=== PATIENT | female | born 1950 | race African-American/Black ===

== ENCOUNTER → 2022-09-22 | Outpatient (CLI) | payer MEDICARE, BC ==
[~2022-09-22] MED LIST: ACYC200C31 PO; BARIUM SULFATE(VOLUMEN) 450 ML ORAL.SUSP ONE; FLUO118.2 TP; IOHEXOL-300 100 ML BOTTLE ONE; KETO120S7 TP; PRAV40TA58 PO
== END | disposition home or self-care (01) ==
LOC: CT 07:18 → 7EST 07:57 → UNDOADMIN 07:57 → 7EST 08:14
PROVIDERS: ATTEND Internal Medicine Hematology & Oncology
DX: C49.A2 Gastrointestinal stromal tumor of stomach (principal); K57.30 Diverticulosis of large intestine without perforation or abscess without bleeding; I25.10 Atherosclerotic heart disease of native coronary artery without angina pectoris; I31.39 Other pericardial effusion (noninflammatory); K76.89 Other specified diseases of liver; E27.8 Other specified disorders of adrenal gland
CPT/HCPCS: 71260; 74177; Q9967

== ENCOUNTER → 2023-10-10 | Outpatient (CLI) | payer MEDICARE, BC ==
[~2023-10-10] MED LIST changes: +BARIUM SULFATE 450ML ORAL SUSP ONE; -BARIUM SULFATE(VOLUMEN) 450 ML ORAL.SUSP ONE
== END | disposition home or self-care (01) ==
LOC: CT 10:26
PROVIDERS: ATTEND Internal Medicine Hematology & Oncology
DX: N28.1 Cyst of kidney, acquired (principal); C49.A2 Gastrointestinal stromal tumor of stomach; I31.39 Other pericardial effusion (noninflammatory); K76.89 Other specified diseases of liver; I70.0 Atherosclerosis of aorta; M47.816 Spondylosis without myelopathy or radiculopathy, lumbar region; K57.30 Diverticulosis of large intestine without perforation or abscess without bleeding
CPT/HCPCS: 74177; Q9967

== ENCOUNTER → 2024-09-10 | Outpatient (CLI) | payer MEDICARE, BC | END | disposition home or self-care (01) | LOC: CT 10:56 | PROVIDERS: ATTEND Internal Medicine Hematology & Oncology | DX: D35.02 Benign neoplasm of left adrenal gland (principal); C49.A2 Gastrointestinal stromal tumor of stomach; K76.89 Other specified diseases of liver; C49.A0 Gastrointestinal stromal tumor, unspecified site; I31.39 Other pericardial effusion (noninflammatory) | CPT/HCPCS: 71260; 74177; Q9967 ==

== ENCOUNTER 2024-11-04 16:17 | Emergency (ER) | payer MEDICARE, BC ==
[~2024-11-04] VITALS: Ht 160 cm; Wt 84.0 kg
[~2024-11-04 16:17] MED LIST changes: -BARIUM SULFATE 450ML ORAL SUSP ONE; -IOHEXOL-300 100 ML BOTTLE ONE
[2024-11-04 16:29] VITALS: O2SAT 100
[2024-11-04] MEDS ORDERED: HYDROMORPHONE HCL/PF 2MG/ML INJ IM ONE (17:30)
[2024-11-04] MEDS: HYDROMORPHONE HCL/PF 1MG/ML INJ IM NR (18:07)
[2024-11-04] MEDS ORDERED: TRAM50TA3 MT (19:38)
[2024-11-04 20:42] VITALS: BP 160/97; PULSE 84; RESP 19; TEMP 36.66960; O2SAT 100
== END 2024-11-04 20:43 | disposition home or self-care (01) ==
LOC: ER 16:17
DX: S50.312A Abrasion of left elbow, initial encounter (principal); M54.6 Pain in thoracic spine; E78.00 Pure hypercholesterolemia, unspecified; E11.9 Type 2 diabetes mellitus without complications; Z79.899 Other long term (current) drug therapy; Z91.09 Other allergy status, other than to drugs and biological substances; W05.0XXA Fall from non-moving wheelchair, initial encounter; Y93.89 Activity, other specified; Y92.89 Other specified places as the place of occurrence of the external cause; Y99.8 Other external cause status
CPT/HCPCS: 99285; 70450; 72125; 71250; 74176; 96372; J1171

== ENCOUNTER → 2025-09-08 | Outpatient (CLI) | payer MEDICARE, BC ==
[~2025-09-08] MED LIST changes: +ACYC-58 PO; -ACYC200C31 PO; +BARIUM SULFATE 450ML ORAL SUSP ONE; +IOHEXOL-300 100 ML BOTTLE ONE; +TRAM50TA3 MT
== END | disposition home or self-care (01) ==
LOC: CT 08:09
DX: C49.A0 Gastrointestinal stromal tumor, unspecified site (principal); N28.1 Cyst of kidney, acquired; K76.89 Other specified diseases of liver; E27.8 Other specified disorders of adrenal gland; M53.84 Other specified dorsopathies, thoracic region; Z98.890 Other specified postprocedural states
CPT/HCPCS: 71260; 74177; Q9967